=== PATIENT | female | born 1955 | race Caucasian/White ===

== ENCOUNTER 2022-12-25 19:26 | Inpatient (IN) | payer MEDICARE, OTHER ==
[~2022-12-25] VITALS: Ht 170.2 cm; Wt 47.2 kg
[2022-12-25 20:24] LABS: HEMATOCRIT 41.2 % (31.2-41.9); MEAN CORPUSCULAR HEMOGLOBIN 28.1 uug (24.7-32.8); MEAN CORPUSCULAR VOLUME 83.7 fL (75.5-95.3); PLATELET COUNT (AUTO) 220 K/uL (179-408)
[2022-12-25 20:53] LABS: ALANINE AMINOTRANSFERASE 16 U/L (14-59); ALKALINE PHOSPHATASE 53 U/L (50-136); ASPARTATE AMINOTRANSFERASE 17 U/L (15-37); BILIRUBIN,DIRECT 0.2 mg/dL (0.0-0.2); BILIRUBIN,TOTAL 0.7 mg/dL (0.2-1.0); CARBON DIOXIDE 24 mmol/L (21-32); CHLORIDE 99 mmol/L (98-107); CREATININE 1.7 mg/dL (0.6-1.3); GLUCOSE 144 mg/dL (74-106); POTASSIUM 4.3 mmol/L (3.5-5.1); TOTAL PROTEIN, SERUM 7.7 g/dL (6.4-8.2); UREA NITROGEN, BLOOD 34 mg/dL (7-18)
[2022-12-25 20:54] LABS: ACETAMINOPHEN < 2.0 ug/mL (10-30)
[2022-12-25 20:55] LABS: ETHANOL < 3 MG/DL (0-0)
[2022-12-25 20:57] LABS: THYROID STIMULATING HORMONE 0.971 mIU/mL (0.358-3.740)
[2022-12-25 21:30] LABS: *BILIRUBIN,URIN 1+ (NEGATIVE); *BLOOD, URINE NEGATIVE (NEGATIVE); *CLARITY,URINE CLEAR (CLEAR); *COLOR,URINE YELLOW (YELLOW); *KETONES,URINE 1+ (NEGATIVE); *UROBILINOGEN,URINE 0.2 E.U./dl (NORMAL); LEUKOCYTE ESTERASE ,URINE NEGATIVE (NEGATIVE); NITRITE, URINE NEGATIVE (NEGATIVE); PH,URINE 5.5 (5.0-8.0); UGLUCOSE NEGATIVE (NEGATIVE)
[2022-12-25 21:50] LABS: *AMPHETAMINE, URINE NEGATIVE (NEGATIVE); *CANNABINOID, URINE NEGATIVE (NEGATIVE); *COCCAINE, URINE NEGATIVE (NEGATIVE); *PHENCYCLIDINE SCREEN,URINE NEGATIVE (NEGATIVE)
[2022-12-26] MEDS ORDERED: MAGNESIUM HYDROXIDE 30 ML LIQUID UDC PO PRN (00:30)
[2022-12-26] MEDS ORDERED: BLOOD SUGAR DIAGNOSTIC 1 EACH STRIP VI ONE (00:30)
[2022-12-26] MEDS ORDERED: MAG HYDROX/AL HYDROX/SIMETH 30 ML LIQUID UDC PO PRN (00:30)
[2022-12-26] MEDS ORDERED: ACETAMINOPHEN 325 MG TABLET PO PRN (00:30)
[2022-12-26] MEDS ORDERED: LORAZEPAM 1 MG TABLET PO PRN (00:30)
[2022-12-26] MEDS ORDERED: ZOLPIDEM 5 MG TABLET PO PRN (00:30)
[2022-12-26 00:39] VITALS: BP 146/61
[2022-12-26 08:38] VITALS: BP 123/51
[2022-12-26] MEDS: ESCITALOPRAM OXALATE 10 MG TABLET PO SCH (09:00)
[2022-12-26] MEDS ORDERED: LORAZEPAM 0.5 MG TABLET PO PRN (09:21)
[2022-12-26 16:02] VITALS: BP 130/63
[2022-12-26 20:06] VITALS: BP 154/50
[2022-12-26] MEDS: QUETIAPINE FUMARATE 25 MG TABLET PO SCH (20:32)
[2022-12-27 08:10] VITALS: BP 120/53
[2022-12-27] MEDS: ESCITALOPRAM OXALATE 10 MG TABLET PO SCH (09:16)
[2022-12-27] MEDS: ENSURE ENLIVE (VAN) 240 ML LIQUID PO SCH (09:21)
[2022-12-27 10:01] LABS: HEMATOCRIT 37.6 % (31.2-41.9); MEAN CORPUSCULAR HEMOGLOBIN 28.2 uug (24.7-32.8); MEAN CORPUSCULAR VOLUME 84.7 fL (75.5-95.3); PLATELET COUNT (AUTO) 190 K/uL (179-408)
[2022-12-27 15:08] LABS: BILIRUBIN,TOTAL 0.5 mg/dL (0.2-1.0); CREATININE 0.9 mg/dL (0.6-1.3); POTASSIUM 3.8 mmol/L (3.5-5.1); TOTAL PROTEIN, SERUM 6.7 g/dL (6.4-8.2)
[2022-12-27 17:17] VITALS: BP 120/62
[2022-12-27 20:00] VITALS: BP 130/59
[2022-12-27] MEDS: QUETIAPINE FUMARATE 25 MG TABLET PO SCH (21:26)
[2022-12-28 08:04] VITALS: BP 135/61
[2022-12-28] MEDS: ESCITALOPRAM OXALATE 10 MG TABLET PO SCH (08:36)
[2022-12-28] MEDS: ENSURE ENLIVE (VAN) 240 ML LIQUID PO SCH (08:36)
[2022-12-28 16:11] VITALS: BP 136/76
[2022-12-28 20:14] VITALS: BP 122/85
[2022-12-28] MEDS ORDERED: QUETIAPINE FUMARATE 25 MG TABLET PO SCH (21:00)
[2022-12-29] MEDS: LORAZEPAM 0.5 MG TABLET PO PRN (00:59)
[2022-12-29 07:50] VITALS: BP 107/65
[2022-12-29] MEDS: ESCITALOPRAM OXALATE 10 MG TABLET PO SCH (08:07)
[2022-12-29] MEDS: ENSURE ENLIVE (VAN) 240 ML LIQUID PO SCH (10:39)
[2022-12-29] MEDS: risperiDONE 1 MG TABLET PO SCH ×2 (13:17→16:24)
[2022-12-29 16:32] VITALS: BP 130/59
[2022-12-29 19:55] VITALS: BP 136/62
[2022-12-30 07:30] VITALS: BP_SYST 111; BP_SYST 121; BP_DIAS 53; BP_DIAS 81
[2022-12-30] MEDS: ESCITALOPRAM OXALATE 10 MG TABLET PO SCH (08:34)
[2022-12-30] MEDS: risperiDONE 1 MG TABLET PO SCH ×3 (08:34→16:50)
[2022-12-30] MEDS: ENSURE ENLIVE (VAN) 240 ML LIQUID PO SCH (09:00)
[2022-12-30 15:24] VITALS: BP 122/52
[2022-12-30] MEDS ORDERED: TRAZODONE 50 MG TABLET PO SCH (21:00)
[2022-12-31 07:30] VITALS: BP 129/51
[2022-12-31] MEDS ORDERED: risperiDONE 1 MG TABLET PO SCH (08:15)
[2022-12-31] MEDS: ENSURE ENLIVE (VAN) 240 ML LIQUID PO SCH (09:00)
[2022-12-31] MEDS: risperiDONE 2 MG TABLET PO SCH ×2 (09:25→17:38)
[2022-12-31] MEDS: ESCITALOPRAM OXALATE 10 MG TABLET PO SCH (09:25)
[2022-12-31 15:17] VITALS: BP 141/45
[2022-12-31 20:01] VITALS: BP 136/50
[2023-01-01 07:30] VITALS: BP 113/48
[2023-01-01] MEDS: risperiDONE 2 MG TABLET PO SCH ×2 (08:25→17:22)
[2023-01-01] MEDS: ESCITALOPRAM OXALATE 10 MG TABLET PO SCH (08:25)
[2023-01-01] MEDS ORDERED: PALIPERIDONE PALMITATE 234 MG/1.5 ML SYRINGE IM ONE (09:00)
[2023-01-01] MEDS: ENSURE ENLIVE (VAN) 240 ML LIQUID PO SCH (09:00)
[2023-01-01 15:21] VITALS: BP 106/54
[2023-01-01 19:57] VITALS: BP 112/56
[2023-01-01] MEDS: LORAZEPAM 0.5 MG TABLET PO PRN (20:19)
[2023-01-02 08:00] VITALS: BP 121/48
[2023-01-02] MEDS: ENSURE ENLIVE (VAN) 240 ML LIQUID PO SCH (09:00)
[2023-01-02] MEDS: ESCITALOPRAM OXALATE 10 MG TABLET PO SCH (10:27)
[2023-01-02] MEDS: risperiDONE 2 MG TABLET PO SCH ×2 (10:27→17:46)
[2023-01-02 16:00] VITALS: BP 124/47
[2023-01-02 21:02] VITALS: BP 105/53
[2023-01-03 07:39] VITALS: BP 121/52
[2023-01-03] MEDS: risperiDONE 2 MG TABLET PO SCH ×2 (08:27→16:14)
[2023-01-03] MEDS: ESCITALOPRAM OXALATE 10 MG TABLET PO SCH (08:27)
[2023-01-03] MEDS: ENSURE ENLIVE (VAN) 240 ML LIQUID PO SCH (08:27)
[2023-01-03 16:11] VITALS: BP 115/49
[2023-01-03 20:00] VITALS: BP 130/55
[2023-01-04] MEDS: LORAZEPAM 0.5 MG TABLET PO PRN (02:02)
[2023-01-04 07:46] VITALS: BP 101/60
[2023-01-04] MEDS: ESCITALOPRAM OXALATE 10 MG TABLET PO SCH (08:34)
[2023-01-04] MEDS: risperiDONE 2 MG TABLET PO SCH ×2 (08:34→16:58)
[2023-01-04] MEDS: ENSURE ENLIVE (VAN) 240 ML LIQUID PO SCH (08:35)
[2023-01-04 16:17] VITALS: BP 139/57
[2023-01-04 20:00] VITALS: BP 132/62
[2023-01-05] MEDS: risperiDONE 2 MG TABLET PO SCH ×2 (08:14→17:02)
[2023-01-05] MEDS: ESCITALOPRAM OXALATE 10 MG TABLET PO SCH (08:14)
[2023-01-05 08:20] VITALS: BP 114/54
[2023-01-05] MEDS: ENSURE ENLIVE (VAN) 240 ML LIQUID PO SCH ×2 (09:50→20:28)
[2023-01-05 16:21] VITALS: BP 98/54
[2023-01-05 19:54] VITALS: BP 127/51
[2023-01-05] MEDS: LORAZEPAM 0.5 MG TABLET PO PRN (20:30)
[2023-01-06 08:09] VITALS: BP 104/52
[2023-01-06] MEDS: risperiDONE 2 MG TABLET PO SCH ×2 (08:26→17:18)
[2023-01-06] MEDS: ESCITALOPRAM OXALATE 10 MG TABLET PO SCH (08:26)
[2023-01-06 16:17] VITALS: BP 137/65
[2023-01-06] MEDS: LORAZEPAM 0.5 MG TABLET PO PRN (19:53)
[2023-01-06 20:00] VITALS: BP 129/59
[2023-01-07 07:48] VITALS: BP 112/52
[2023-01-07] MEDS: ESCITALOPRAM OXALATE 10 MG TABLET PO SCH (08:31)
[2023-01-07] MEDS: risperiDONE 2 MG TABLET PO SCH ×2 (08:31→17:37)
[2023-01-07] MEDS: ENSURE ENLIVE (VAN) 240 ML LIQUID PO SCH (08:33)
[2023-01-07 15:25] VITALS: BP 145/70
[2023-01-07 19:58] VITALS: BP 132/66
[2023-01-07] MEDS: TRAZODONE 50 MG TABLET PO PRN (20:52)
[2023-01-08 07:30] VITALS: BP 112/50
[2023-01-08] MEDS ORDERED: PALIPERIDONE PALMITATE 156 MG/ML SYRINGE IM SCH (09:00)
[2023-01-08] MEDS: ENSURE ENLIVE (VAN) 240 ML LIQUID PO SCH (09:02)
[2023-01-08] MEDS: ESCITALOPRAM OXALATE 10 MG TABLET PO SCH (09:02)
[2023-01-08 15:28] VITALS: BP 135/54
[2023-01-08 20:07] VITALS: BP 106/62
[2023-01-08] MEDS: TRAZODONE 50 MG TABLET PO PRN (20:54)
[2023-01-08] MEDS: LORAZEPAM 0.5 MG TABLET PO PRN (22:11)
[2023-01-09 08:13] VITALS: BP 122/54
[2023-01-09] MEDS: ENSURE ENLIVE (VAN) 240 ML LIQUID PO SCH (08:39)
[2023-01-09] MEDS: ESCITALOPRAM OXALATE 10 MG TABLET PO SCH (08:39)
== END 2023-01-09 11:45 | DRG 885 ==
LOC: ER 19:26 → GPS 23:42
PROVIDERS: ADMIT Psychiatry & Neurology Psychiatry; ATTEND Registered Nurse
DX: F25.1 Schizoaffective disorder, depressive type (principal); N17.0 Acute kidney failure with tubular necrosis; R45.851 Suicidal ideations; F09 Unspecified mental disorder due to known physiological condition; Z86.59 Personal history of other mental and behavioral disorders; F31.9 Bipolar disorder, unspecified
CPT/HCPCS: 36415; 70450; 84443; 85025; 93005; A4663; C1758; G0480; J2426